=== PATIENT | female | born 1990 | race Caucasian/White ===

== ENCOUNTER 2017-03-12 16:28 | Observation (INO) ==
[2017-03-12] MEDS ORDERED: Ringers Solution, Lactated 500 ML IVC ONE (18:26)
[2017-03-12] MEDS ORDERED: *HR* Nalbuphine 20 MG/ML AMPUL IVP PRN (18:26)
[2017-03-12] MEDS ORDERED: Ringers Solution, Lactated 1,000 ML IVC SCH (18:30)
[2017-03-12] MEDS ORDERED: Lidocaine -MPF 2% 5 ML VIAL ONE (18:37)
[2017-03-12 19:02] LABS: Basophils % 0.2 %; Eosinophils # 0.1 K/mcL (0.0-0.6); Eosinophils % 0.6 %; Hematocrit 38.9 % (35.3-44.9); Hemoglobin 13.3 g/dL (11.5-15.4); Immature Granulocytes % 1.2 % (0-4); Lymphocytes # 2.3 K/mcL (0.6-4.6); Lymphocytes % 15.4 %; Mean Corpuscular HGB Conc 34.2 g/dL (31.6-35.5); Mean Corpuscular Hemoglobin 33.3 pg (28.0-33.3); Mean Corpuscular Volume 97.5 fL (83.0-100.0); Mean Platelet Volume 10.2 fL (9.4-12.4); Monocytes # 0.9 K/mcL (0.0-1.3); Monocytes % 6.1 %; Neutrophils # 11.1 K/mcL (1.6-8.9); Platelet Count 217 K/mcL (140-400); Red Blood Count 3.99 M/mcL (3.82-4.97); Red Cell Distribution Width 13.3 % (11.5-14.5); Segmented Neutrophils % 76.5 %
[2017-03-12] MEDS ORDERED: Ringers Solution, Lactated 1,000 ML ONE (22:12)
--- NOTE | 2017-03-12 22:28 | Discharge Summary ---
Date of Encounter: 03/12/17 Time of Encounter: 20:00 - Discharge Diagnosis (1) 39 weeks gestation of Priority: Primary Status: Acute Comments: admitted for labor evaluation (2) False labor Priority: Secondary Status: Acute Comments: no cervical change after 4 hours of observation - Discharge Medications Home Medications: Pnv No.122/Iron/Folic Acid [ Multi Tablet] 1 tab PO DAILY 03/12/17 [ History] Allergies/Adverse Reactions: Allergies No Known Allergies Allergy (Verified 03/12/17 21:56) Data Procedures and tests throughout hospitalization: Laboratory Tests 03/12/17 18:50 WBC 14.6 H RBC 3.99 Hgb 13.3 Hct 38.9 MCV 97.5 MCH 33.3 MCHC 34.2 RDW 13.3 Plt Count 217 MPV 10.2 Immature Gran % 1.2 Seg Neutrophils % 76.5 Lymphocytes % 15.4 Monocytes % 6.1 Eosinophils % 0.6 Basophils % 0.2 Neutrophils # 11.1 H Lymphocytes # 2.3 Monocytes # 0.9 Eosinophils # 0.1 Basophils # 0.0 Labs on day of discharge: Labs from last 24 hours 03/12/17 18:50 WBC 14.6 H RBC 3.99 Hgb 13.3 Hct 38.9 MCV 97.5 MCH 33.3 MCHC 34.2 RDW 13.3 Plt Count 217 MPV 10.2 Immature Gran % 1.2 Seg Neutrophils % 76.5 Lymphocytes % 15.4 Monocytes % 6.1 Eosinophils % 0.6 Basophils % 0.2 Neutrophils # 11.1 H Lymphocytes # 2.3 Monocytes # 0.9 Eosinophils # 0.1 Basophils # 0.0 Date of admission: 03/12/17 16:28 Primary care physician: PCP NO Discharging clinician: Gudelia Bloom Anticipated date of discharge: 03/12/17 - Patient Status Disposition: Home, Self-Care Condition: Good - Discharge Instructions Follow Up With: NO,PCP [Primary Care Provider] - Additional Instructions: LABOR AND DELIVERY DISCHARGE INSTRUCTIONS Signs and Symptoms to be Reported to your Doctor Immediately: * Sudden gush, continuous or intermittent lead of fluid from vagina (note the time of gush and color of fluid) * Onset of bright red vaginal bleeding with or without pain (if you had a vaginal exam during this visit you may notice some dark red spotting. This is normal.) * Contractions that are 5 minutes apart (from the beginning of one contraction to the beginning of the next) and last 45-60 seonds; contractions that you can no longer walk, talk or laugh through. * A change in the baby's activity. This could be an increase or decrease in activity. * Severe headache which does not go away with tylenol. * Sudden swelling in the face, hands, arms and/or legs. * Upper abdominal pain - sometimes associated with heartburn or nausea and is not relieved by Maalox, Mylanta or Tums. * Kick Counts __ One hour after a meal, lay down on one side in a quiet place. Count the number of time the baby moves during an hour. If less than 6 movements, notify your physician Diet: *Force fluids, 8 to 10 tall glasses of fluid per day - may include popsicles and jello *Limit caffeine - this includes chocolate, coffee, tea, any soft drink containing such as all jaden, Savage Yellow and Mountain Dew - Diet and Activity Diet: regular diet Hospital Course [employer] Hospital course: Patient is 26 y/o at 39w5d presented to labor and delivery for labor evaluation. After 4 hours of observation no cervical change was made. Patient had a reactive NST. Time Attestation: Total time spent providing and/or coordinating discharge services: Time Spent: Less than 30 minutes Exam - Other Additional findings: Patient seen and assessed by RN. - VTE Reasons for not Prescribing Prophylaxis: Treatment not Indicated - Low risk for VTE
[2017-03-12] MEDS ORDERED: *HR* FentaNYL (PF) 100 MCG/2 ML VIAL ONE (23:17)
== END 2017-03-12 20:42 | disposition home or self-care (01) ==
LOC: 1NENULAB
PROVIDERS: ADMIT Obstetrics & Gynecology; ATTEND Obstetrics & Gynecology